=== PATIENT | male | born 1990 | race Hispanic/Latino ===

== ENCOUNTER 2019-05-13 20:52 | Emergency (ER) | payer OTHER ==
[2019-05-13] MEDS ORDERED: Adacel (T-DAP) 0.5 ML SYRINGE ONE (21:20)
[2019-05-13] MEDS ORDERED: Lidocaine 1% w/Epinephrine 1:100K 20 ML VIAL ONE (22:41)
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
== END 2019-05-14 00:30 ==
LOC: ERS 20:52
DX: S01.511A Laceration without foreign body of lip, initial encounter (principal); S01.01XA Laceration without foreign body of scalp, initial encounter; S40.012A Contusion of left shoulder, initial encounter; Z23 Encounter for immunization; Y04.2XXA Assault by strike against or bumped into by another person, initial encounter
CPT/HCPCS: 12001; 40650; 70450; 90471; 90715; J2001